=== PATIENT | female | born 1955 | race African-American/Black ===

== ENCOUNTER 2021-01-14 00:45 | Emergency (ER) | payer MEDICARE, OTHER ==
[~2021-01-14] VITALS: Ht 162.6 cm; Wt 76.2 kg
[2021-01-14 01:27] VITALS: BP 149/89
[2021-01-14] MEDS ORDERED: HYDR-3972 PO (02:03)
[2021-01-14] MEDS ORDERED: CYCL15CA23 PO (02:03)
[2021-01-14] MEDS ORDERED: DEXAMETHASONE SOD PHOSPHATE 10 MG/ML VIAL ONE (02:05)
[2021-01-14] MEDS ORDERED: CARISOPRODOL 350 MG TABLET ONE (02:05)
[2021-01-14] MEDS ORDERED: MORPHINE SULFATE INJ 4 MG/ML DISP.SYRIN ONE (02:06)
[2021-01-14] MEDS: CARISOPRODOL 350 MG TABLET PO ONE (02:12)
[2021-01-14] MEDS: DEXAMETHASONE SOD PHOSPHATE 4 MG/ML VIAL IM ONE (02:12)
[2021-01-14] MEDS: MORPHINE SULFATE INJ 2 MG/ML DISP.SYRIN IM ONE (02:12)
--- NOTE | 2021-01-14 02:44 | NUR ---
Patient discharged to home in stable condition. Written and verbal after care instructions given. Patient verbalizes understanding of instruction. advice pt not to drive or operate any machinery due to pt was given narcotic emdicine. pt verbalize understanding.
== END 2021-01-14 02:46 | disposition home or self-care (01) ==
LOC: ER 00:54
DX: M54.42 Lumbago with sciatica, left side (principal); I10 Essential (primary) hypertension; Z88.8 Allergy status to other drugs, medicaments and biological substances; Z88.6 Allergy status to analgesic agent; Z60.2 Problems related to living alone; Z79.899 Other long term (current) drug therapy
CPT/HCPCS: 96372 ×2; 99284; J1100; J2270